=== PATIENT | female | born 1975 | race Caucasian/White ===

== ENCOUNTER 2017-07-29 10:02 | Emergency (ER) | payer OTHER ==
[2017-07-29 10:12] VITALS: BP 131/74
--- NOTE | 2017-07-29 10:45 | UC ---
Abdominal Pain Female HPI - HPI Summary HPI Summary: 41 year old with nausea with vomiting and diarrhea for the past 24 hours. No blood in fluid. No fever. No recent travel or antibiotics. - History of Current Complaint Chief Complaint: UCGI Stated Complaint: VOMITING DIARRHEA Time Seen by Provider: 07/29/17 10:36 Hx Obtained From: Patient Hx Last Menstrual Period: august 2016, had an ablation ?: No Onset/Duration: Sudden Onset Timing: Constant Severity Initially: Moderate Radiates: No Aggravating Factor(s): Food Alleviating Factor(s): Nothing Allergies/Adverse Reactions: Allergies Allergy/AdvReac Type Severity Reaction Status Date / Time No Known Allergies Allergy Verified 07/29/17 10:11 PMH/Surg Hx/FS Hx/Imm Hx Previously Healthy: Yes - Surgical History Surgical History: Yes Surgery Procedure, Year, and Place: x 2. uterine ablation - Family History Known Family History: Positive: Cardiac Disease - mom - Social History Occupation: Employed Full-time Lives: With Family Alcohol Use: None Substance Use Type: None Smoking Status (MU): Light Every Day Tobacco Smoker Type: Cigarettes Amount Used/How Often: 2-3 cigs per day - Immunization History Most Recent Influenza Vaccination: no Review of Systems Constitutional: Fatigue Gastrointestinal: Vomiting, Diarrhea, Nausea All Other Systems Reviewed And Are Negative: Yes Physical Exam Triage Information Reviewed: Yes Appearance: Well-Appearing, No Pain Distress, Well-Nourished Vital Signs: Initial Vital Signs Temp 98.4 F 07/29/17 10:06 Pulse 92 07/29/17 10:06 Resp 16 07/29/17 10:06 BP 131/74 07/29/17 10:06 Pulse Ox 100 07/29/17 10:06 Eye Exam: Normal ENT Exam: Normal Dental Exam: Normal Neck exam: Normal Neck: Positive: 1 Respiratory Exam: Normal Cardiovascular Exam: Normal Abdominal Exam: Normal Musculoskeletal Exam: Normal Neurological Exam: Normal Psychological Exam: Normal Skin Exam: Normal Abd Pain Female Course/Dx - Differential Dx/Diagnosis Provider Diagnoses: Viral Gastroenteritis Discharge - Discharge Plan Condition: Good Disposition: HOME Prescriptions: Ondansetron TAB* [Zofran 4 MG Tab*] 4 mg PO Q6H PRN #10 tab PRN Reason: Nausea Patient Education Materials: Gastroenteritis (ED) Forms: *Work Release Referrals: Zack David [Primary Care Provider] - 4 Days
== END 2017-07-29 10:54 | disposition home or self-care (01) ==
LOC: UCCORT 10:02
DX: A08.4 Viral intestinal infection, unspecified (principal); F17.210 Nicotine dependence, cigarettes, uncomplicated
CPT/HCPCS: 99202; G0463

== ENCOUNTER 2017-08-19 11:04 | Emergency (ER) | payer OTHER, MEDICAID ==
[2017-08-19 11:16] VITALS: BP 142/97
--- NOTE | 2017-08-19 11:42 | UC ---
Back Pain HPI - HPI Summary HPI Summary: 41 year old with back pain. Right greater than left back pain with spasms onset 2 days ago when pt bent over to pick something up. Pain radiates to both legs at times. No trauma, no bowel or bladder concerns, has had this one time prior a few years ago . [ End ] - History of Current Complaint Chief Complaint: UCBackPain Stated Complaint: BACK PAIN Time Seen by Provider: 08/19/17 11:34 Hx Obtained From: Patient Hx Last Menstrual Period: 08/2016 ?: No Onset/Duration: Sudden Onset Timing: Constant Severity Initially: Moderate Character: Spasmodic, Stiffness Aggravating Factor(s): Movement, Lifting, Bending Alleviating Factor(s): Rest - Allergies/Home Medications Allergies/Adverse Reactions: Allergies Allergy/AdvReac Type Severity Reaction Status Date / Time No Known Allergies Allergy Verified 08/19/17 11:16 Home Medications: Home Medications Ibuprofen TAB* [Motrin TAB* 800 MG] 2,400 mg PO ONCE PRN 08/19/17 [History Confirmed 08/19/17] PMH/Surg Hx/FS Hx/Imm Hx Previously Healthy: Yes - Surgical History Surgical History: Yes Surgery Procedure, Year, and Place: x 2. uterine ablation - Family History Known Family History: Positive: Cardiac Disease - mom - Social History Alcohol Use: None Substance Use Type: None Smoking Status (MU): Light Every Day Tobacco Smoker Type: Cigarettes Amount Used/How Often: 2-3 cigs per day Cessation Counseling: Patient Advised to Stop - Immunization History Most Recent Influenza Vaccination: no Review of Systems Musculoskeletal: Arthralgia, Decreased ROM Neurological: Paresthesia Is Patient Immunocompromised?: No All Other Systems Reviewed And Are Negative: Yes Physical Exam Triage Information Reviewed: Yes Appearance: Well-Appearing, No Pain Distress, Well-Nourished Vital Signs: Initial Vital Signs Temp 97.5 F 08/19/17 11:10 Pulse 73 08/19/17 11:10 Resp 22 08/19/17 11:10 BP 142/97 08/19/17 11:10 Vital Signs Reviewed: Yes Eye Exam: Normal Neck exam: Normal Respiratory Exam: Normal Cardiovascular Exam: Normal Musculoskeletal Exam: Normal Musculoskeletal: Positive: Strength Intact, ROM Intact, Other: - b/l lumbar paraspinal tenderness to palpation L3-5. (+) left SLR . DTR's brisk. LE strength 5/5 Neurological Exam: Normal Psychological Exam: Normal Skin Exam: Normal Back Pain Course/Dx - Course Course Of Treatment: start PT, NSAIDs, medrol, f/u with ortho - Differential Dx/Diagnosis Differential Diagnosis/HQI/PQRI: Herniated Disc, Strain, Sprain Provider Diagnoses: sciatica Discharge - Discharge Plan Condition: Good Disposition: HOME Prescriptions: Cyclobenzaprine HCl [Flexeril 5 mg (NF)] 5 mg PO BID #10 tab Methylprednisolone [Medrol Dosepak 4 MG*] 0 mg PO .SEE NAJMA INSTRUCTION #1 tab Patient Education Materials: Sciatica (ED) Referrals: Zack David [Primary Care Provider] - 4 Days Lio Palma MD [Medical Doctor] - 7 Days (Orthopedic referral if needed )
== END 2017-08-19 12:08 | disposition home or self-care (01) ==
LOC: UCCORT 11:04
DX: M54.30 Sciatica, unspecified side (principal); F17.210 Nicotine dependence, cigarettes, uncomplicated
CPT/HCPCS: 99212; G0463

== ENCOUNTER 2017-08-30 10:54 | Emergency (ER) | payer OTHER, MEDICAID ==
[2017-08-30 11:04] VITALS: BP 139/84
--- NOTE | 2017-08-30 11:14 | UC ---
Respiratory Complaint HPI - HPI Summary HPI Summary: 41 YEAR OLD FEMALE PRESENTS WITH COMPLAINS OF COUGH, CHEST CONGESTION AND SINUS PRESSURE. - History of Current Complaint Chief Complaint: UCGeneralIllness Stated Complaint: CONGESTION HEADACHE COUGH Time Seen by Provider: 08/30/17 11:14 Hx Obtained From: Patient Hx Last Menstrual Period: uterine ablation Onset/Duration: Sudden Onset Severity Initially: Moderate Severity Currently: Moderate Pain Scale Used: 0-10 Numeric - 5 - Allergies/Home Medications Allergies/Adverse Reactions: Allergies Allergy/AdvReac Type Severity Reaction Status Date / Time No Known Allergies Allergy Verified 08/30/17 11:00 PMH/Surg Hx/FS Hx/Imm Hx Previously Healthy: Yes - Surgical History Surgical History: Yes Surgery Procedure, Year, and Place: x 2. uterine ablation. D&C - Family History Known Family History: Positive: Cardiac Disease - mom - Social History Alcohol Use: None Substance Use Type: None Smoking Status (MU): Light Every Day Tobacco Smoker Type: Cigarettes Amount Used/How Often: 1-2 cigarettes daily - Immunization History Most Recent Influenza Vaccination: no Review of Systems Constitutional: Negative Skin: Negative Eyes: Negative ENT: Sore Throat, Nasal Discharge, Sinus Congestion, Sinus Pain/Tenderness Respiratory: Cough Cardiovascular: Negative Gastrointestinal: Negative Genitourinary: Negative Motor: Negative Neurovascular: Negative Musculoskeletal: Negative Neurological: Negative Psychological: Negative All Other Systems Reviewed And Are Negative: Yes Physical Exam Triage Information Reviewed: Yes Vital Signs: Initial Vital Signs Temp 36.7 C 08/30/17 11:00 Pulse 85 08/30/17 11:00 Resp 16 08/30/17 11:00 BP 139/84 08/30/17 11:00 Pulse Ox 100 08/30/17 11:00 Vital Signs Reviewed: Yes Eye Exam: Normal ENT: Positive: Pharyngeal erythema, Nasal congestion, Nasal drainage Dental Exam: Normal Neck exam: Normal Neck: Positive: 1 Respiratory Exam: Normal Respiratory: Positive: Wheezing Cardiovascular Exam: Normal Abdominal Exam: Normal Musculoskeletal Exam: Normal Neurological Exam: Normal Psychological Exam: Normal Skin Exam: Normal UC Diagnostic Evaluation - Laboratory O2 Sat by Pulse Oximetry: 100 Respiratory Course/Dx - Differential Dx/Diagnosis Provider Diagnoses: SINUSITIS. COPD. BRONCHITIS Discharge - Discharge Plan Condition: Stable Disposition: HOME Prescriptions: Albuterol HFA INHALER* [Ventolin HFA Inhaler*] 1 puff INH Q6H PRN #1 mdi PRN Reason: Wheezing Azithromyxin NAJMA (NF) [Z-Najma (Zithromax) 250 mg tabs #6] 2 tab PO .TODAY, THEN 1 DAILY #6 tab Methylprednisolone [Medrol Dosepak 4 MG*] 4 mg PO .SEE NAJMA INSTRUCTION #21 tab guaiFENesin/CODIEN 100MG-10MG* [Robitussin AC 100Mg-10Mg*] 5 ml PO Q6H PRN #120 ml MDD 20 ml PRN Reason: Cough Patient Education Materials: COPD (Chronic Obstructive Pulmonary Disease) (ED) , Acute Cough (ED) Referrals: Zack David [Primary Care Provider] -
== END 2017-08-30 11:24 | disposition home or self-care (01) ==
LOC: UCCORT 10:54
DX: J40 Bronchitis, not specified as acute or chronic (principal); J32.9 Chronic sinusitis, unspecified; J44.9 Chronic obstructive pulmonary disease, unspecified; F17.210 Nicotine dependence, cigarettes, uncomplicated
CPT/HCPCS: 99212; G0463

== ENCOUNTER 2018-01-31 17:35 | Emergency (ER) | payer OTHER, MEDICAID ==
[2018-01-31 18:17] VITALS: BP 128/87
--- NOTE | 2018-01-31 18:57 | UC ---
Lower Extremity/Ankle HPI - HPI Summary HPI Summary: pt is c/o pain to the back of her left heel for 4 months. she notes the foot is starting to hurt as well. she denies any injury. she admits that the foot looks a little swollen. no fever or rash. she has tx with IB and shoe inserts with no relief. pt deniea any other joint pain. - History of Current Complaint Chief Complaint: UCGeneralIllness Stated Complaint: LEFT HEEL COMPLAINT Time Seen by Provider: 01/31/18 18:37 Hx Obtained From: Patient Hx Last Menstrual Period: Aug 2016-tubal ligation/uterine ablation ?: No Pain Intensity: 9 Aggravating Factor(s): Standing, Ambulation Alleviating Factor(s): Rest Able to Bear Weight: No - not on the heel itself - Allergies/Home Medications Allergies/Adverse Reactions: Allergies Allergy/AdvReac Type Severity Reaction Status Date / Time No Known Allergies Allergy Verified 01/31/18 18:09 PMH/Surg Hx/FS Hx/Imm Hx Previously Healthy: Yes - Surgical History Surgical History: Yes Surgery Procedure, Year, and Place: x 2. uterine ablation. D&C - Family History Known Family History: Positive: Cardiac Disease - mom - Social History Occupation: Employed Full-time Alcohol Use: Occasionally Substance Use Type: None Smoking Status (MU): Light Every Day Tobacco Smoker Type: Cigarettes Amount Used/How Often: 1-2 cigarettes daily - Immunization History Most Recent Influenza Vaccination: no Review of Systems Constitutional: Negative Skin: Negative Eyes: Negative ENT: Negative Respiratory: Negative Cardiovascular: Negative Gastrointestinal: Negative Genitourinary: Negative Motor: Negative Neurovascular: Negative Musculoskeletal: Other: - pain to back of L heel Neurological: Negative Psychological: Negative Is Patient Immunocompromised?: No All Other Systems Reviewed And Are Negative: Yes Physical Exam Triage Information Reviewed: Yes Appearance: Well-Appearing Vital Signs: Initial Vital Signs Temp 98 F 01/31/18 18:09 Pulse 82 01/31/18 18:09 Resp 16 01/31/18 18:09 BP 128/87 01/31/18 18:09 Pulse Ox 100 01/31/18 18:09 Vital Signs Reviewed: Yes Eye Exam: Normal Diagnostics - Radiology No standard instances Xray Interpretation: No Acute Changes Radiology Interpretation Completed By: Radiologist Lower Extremity Course/Dx - Course Course Of Treatment: no sign of infection to soft tissue, fx or dislocation. no osteomyelitis seen. possble retrocaneal bursitis. will refer to orthopedics - Differential Dx/Diagnosis Provider Diagnoses: Left heel pain. Possible retrocalcaneal bursitis Discharge - Discharge Plan Condition: Stable Disposition: HOME Prescriptions: Naproxen [Naprosyn] 500 mg PO BID #14 tablet Patient Education Materials: Heel Spur (ED) Referrals: Zack David [Primary Care Provider] - If Needed Sybil Strauss DPM [Doctor of Podiatric Medicine] - As Soon As Possible Additional Instructions: STOP THE MOTRIN
--- NOTE | 2018-01-31 19:36 | RAD ---
INDICATION: Left foot pain COMPARISON: None TECHNIQUE: AP, lateral, and oblique views were obtained. FINDINGS: There is no acute fracture or dislocation. There are heel spurs. There are hammertoe deformities. The soft tissues are normal. IMPRESSION: NO ACUTE BONY FINDINGS. HEEL SPURS.
== END 2018-01-31 19:46 | disposition home or self-care (01) ==
LOC: UCCORT 17:35
DX: M79.672 Pain in left foot (principal); F17.210 Nicotine dependence, cigarettes, uncomplicated
CPT/HCPCS: 99212; G0463

== ENCOUNTER 2018-09-24 11:05 | Emergency (ER) | payer OTHER ==
[2018-09-24 11:18] VITALS: BP 132/72
--- NOTE | 2018-09-24 11:29 | UC ---
General HPI - HPI Summary HPI Summary: 42 yo without PMH c/o vomiting and diarrhea since 0300 this morning. States she was able to drink fluids and has not vomited for the past 2 hrs. Denies diarrhea since yesterday. Denies chills, fever, flank pain, urinary symptoms Needs a work note for today - History of Current Complaint Chief Complaint: UCGI Stated Complaint: NAUSEA/DIARRHEA Time Seen by Provider: 09/24/18 11:21 Hx Obtained From: Patient Hx Last Menstrual Period: none since 09/2016 Onset/Duration: Sudden Onset, Lasting Hours Onset Severity: Mild Current Severity: None Pain Intensity: 0 Associated Signs & Symptoms: Positive: Abdominal Pain, Diarrhea, Vomiting - Allergy/Home Medications Allergies/Adverse Reactions: Allergies Allergy/AdvReac Type Severity Reaction Status Date / Time No Known Allergies Allergy Verified 09/24/18 11:16 Home Medications: Home Medications NK [No Home Medications Reported] 09/24/18 [History Confirmed 09/24/18] PMH/Surg Hx/FS Hx/Imm Hx Previously Healthy: Yes - Surgical History Surgical History: Yes Surgery Procedure, Year, and Place: x 2. uterine ablation. D&C - Family History Known Family History: Positive: Cardiac Disease - mom, Hypertension - Social History Alcohol Use: Rare Substance Use Type: None Smoking Status (MU): Light Every Day Tobacco Smoker Type: Cigarettes Amount Used/How Often: 1-2 cigarettes daily - Immunization History Most Recent Influenza Vaccination: no Review of Systems All Other Systems Reviewed And Are Negative: Yes Gastrointestinal: Positive: Vomiting, Diarrhea, Nausea Physical Exam Appearance: Well-Appearing, No Pain Distress, Obese Vital Signs: Initial Vital Signs Temp 97.6 F 09/24/18 11:14 Pulse 77 09/24/18 11:14 Resp 16 09/24/18 11:14 BP 132/72 09/24/18 11:14 Pulse Ox 99 09/24/18 11:14 Vital Signs Reviewed: Yes Eyes: Positive: Conjunctiva Clear ENT: Positive: Hearing grossly normal, Pharynx normal, TMs normal Neck: Positive: Supple, Nontender, No Lymphadenopathy Respiratory: Positive: Chest non-tender, Lungs clear, Normal breath sounds, No respiratory distress Cardiovascular: Positive: RRR, No Murmur, Pulses Normal, Brisk Capillary Refill Abdomen Description: Positive: Nontender, No Organomegaly, Soft Bowel Sounds: Positive: Present Musculoskeletal: Positive: Strength Intact, ROM Intact, No Edema Neurological: Positive: Alert, Muscle Tone Normal Skin Exam: Normal Course/Dx - Course Course Of Treatment: patient with self limited diarrhea and vomiting which lasted several hours, compatible with food poisoning/gastroenteritis continue oral hydration and f/u with PCP - Differential Dx - Multi-Symptom Provider Diagnoses: Gastroenteritis Discharge - Sign-Out/Discharge Documenting (check all that apply): Patient Departure All imaging exams completed and their final reports reviewed: No Studies - Discharge Plan Condition: Stable Disposition: HOME Patient Education Materials: Gastroenteritis (ED), Dehydration (ED) Referrals: Zack David [Primary Care Provider] - - Billing Disposition and Condition Condition: STABLE Disposition: Home
== END 2018-09-24 11:49 | disposition home or self-care (01) ==
LOC: UCCORT 11:05
DX: K52.9 Noninfective gastroenteritis and colitis, unspecified (principal); F17.210 Nicotine dependence, cigarettes, uncomplicated
CPT/HCPCS: 99211; G0463

== ENCOUNTER 2018-12-22 09:04 | Emergency (ER) | payer OTHER ==
[2018-12-22 10:43] VITALS: BP 131/88
[2018-12-22 11:07] LABS: Influenza A Molecular POSITIVE (Negative)
--- NOTE | 2018-12-22 11:18 | UC ---
General HPI - HPI Summary HPI Summary: Here with Son (same symptoms) 4 days ago started with a sore throat, cough and congestion. Fever started 2 days ago - Tmax: 101. N/V/D No abdominal pain. + Body aches. Good PO. No rash. +sick contacts. Is a smoker but stopped since she has been sick. Works in school system - History of Current Complaint Chief Complaint: UCGeneralIllness Stated Complaint: VOMITING,COUGH Time Seen by Provider: 12/22/18 10:43 Hx Last Menstrual Period: none since 09/2016 Pain Intensity: 0 - Allergy/Home Medications Allergies/Adverse Reactions: Allergies Allergy/AdvReac Type Severity Reaction Status Date / Time No Known Allergies Allergy Verified 12/22/18 10:38 Home Medications: Home Medications Phenylephrine/Dm/Acetaminop/GG [Tylenol Cold-Flu Severe Caplet] 1 each PO ONCE 12/22/18 [History Confirmed 12/22/18] PMH/Surg Hx/FS Hx/Imm Hx Previously Healthy: Yes - Surgical History Surgical History: Yes Surgery Procedure, Year, and Place: x 2. uterine ablation. D&C - Family History Known Family History: Positive: Cardiac Disease - mom, Hypertension - Social History Alcohol Use: Rare Substance Use Type: None Smoking Status (MU): Light Every Day Tobacco Smoker Type: Cigarettes Amount Used/How Often: 1-2 cigarettes daily - Immunization History Most Recent Influenza Vaccination: no Review of Systems All Other Systems Reviewed And Are Negative: Yes Constitutional: Positive: Fever, Chills ENT: Positive: Sore Throat, Sinus Congestion Respiratory: Positive: Cough Gastrointestinal: Positive: Vomiting, Diarrhea, Nausea Physical Exam Vital Signs: Initial Vital Signs Temp 99.1 F 12/22/18 10:38 Pulse 78 12/22/18 10:38 Resp 17 12/22/18 10:38 BP 131/88 12/22/18 10:38 Pulse Ox 98 12/22/18 10:38 Course/Dx - Course Course Of Treatment: This is a 43 yr old with cough/congestion and fever. Assessment. Nontoxic appearing. INfluenza A positive. RAD. Plan. Start Tamiflu as prescribed. Start Albuterol inhaler with spacer every 4-6 hours while sick then as needed. COntinue to drink fluids. Ibuprofen as needed for pain/fever as directed. If symptoms persist or worsen, call primary or return to urgent care. Stop smoking - Diagnoses Provider Diagnosis: Influenza A, Reactive airway disease Discharge - Sign-Out/Discharge Documenting (check all that apply): Patient Departure All imaging exams completed and their final reports reviewed: No Studies - Discharge Plan Condition: Good Disposition: HOME Prescriptions: Albuterol HFA INHALER* [Ventolin HFA Inhaler*] 2 puff INH Q4H PRN #1 mdi PRN Reason: Cough Oseltamivir Phosphate [Tamiflu] 75 mg PO BID #10 capsule Patient Education Materials: Influenza (ED) Forms: *Work Release Referrals: Zack David [Primary Care Provider] - Additional Instructions: Start Tamiflu as prescribed Start Albuterol inhaler with spacer every 4-6 hours while sick then as needed COntinue to drink fluids Ibuprofen as needed for pain/fever as directed If symptoms persist or worsen, call primary or return to urgent care - Billing Disposition and Condition Condition: GOOD Disposition: Home
== END 2018-12-22 11:32 | disposition home or self-care (01) ==
LOC: UCCORT 09:04
DX: J45.909 Unspecified asthma, uncomplicated (principal); J10.1 Influenza due to other identified influenza virus with other respiratory manifestations; F17.210 Nicotine dependence, cigarettes, uncomplicated; R19.7 Diarrhea, unspecified
CPT/HCPCS: 99212; G0463

== ENCOUNTER 2019-02-14 13:51 | Emergency (ER) | payer OTHER ==
[2019-02-14 14:04] VITALS: BP 132/71
--- NOTE | 2019-02-14 14:19 | UC ---
Abdominal Pain Female HPI - HPI Summary HPI Summary: sever RLQ abdominal pain x 1 day started from mid abd yesterday , moving to the right lower this morning pain is sever, 10 out of 10, no radiation , worse with movements, better by not moving at all no n/v/d/c , no urinary sx - History of Current Complaint Chief Complaint: UCAbdominalPain Stated Complaint: SEVERE ABD PAIN Time Seen by Provider: 02/14/19 14:08 Hx Obtained From: Patient Hx Last Menstrual Period: none since 09/2016 ?: No Onset/Duration: Gradual Onset, Lasting Days - 1, Still Present Timing: Constant Severity Initially: Moderate Severity Currently: Severe Pain Intensity: 9 Location: Discrete At: RLQ Radiates: No Character: Aching Aggravating Factor(s): Movement Alleviating Factor(s): Position Associated Signs and Symptoms: Negative: Fever, Back Pain, Constipation, Blood in Stool, Urinary Symptoms, Decreased Appetite, Vaginal Bleeding, Vaginal Discharge, Nausea, Vomiting, Diarrhea Allergies/Adverse Reactions: Allergies Allergy/AdvReac Type Severity Reaction Status Date / Time No Known Allergies Allergy Verified 02/14/19 14:03 Home Medications: Home Medications Ibuprofen 400 mg PO ONCE PRN 02/14/19 [History Confirmed 02/14/19] PMH/Surg Hx/FS Hx/Imm Hx - Additional Past Medical History Additional PMH: abdominal abscess 06/2016 s/p - Surgical History Surgical History: Yes Surgery Procedure, Year, and Place: x 2. uterine ablation. D&C - Family History Known Family History: Positive: Cardiac Disease - mom, Hypertension - Social History Alcohol Use: Occasionally Substance Use Type: None Smoking Status (MU): Light Every Day Tobacco Smoker Type: Cigarettes Amount Used/How Often: 1-2 cigarettes daily - Immunization History Most Recent Influenza Vaccination: no Review of Systems All Other Systems Reviewed And Are Negative: Yes Constitutional: Positive: Negative Skin: Positive: Negative Eyes: Positive: Negative ENT: Positive: Negative Gastrointestinal: Positive: Abdominal Pain Is Patient Immunocompromised?: No Physical Exam Triage Information Reviewed: Yes Appearance: Pain Distress, Obese Vital Signs: Initial Vital Signs Temp 97.8 F 02/14/19 13:59 Pulse 94 02/14/19 13:59 Resp 18 02/14/19 13:59 BP 132/71 02/14/19 13:59 Pulse Ox 100 02/14/19 13:59 Vital Signs Reviewed: Yes Eye Exam: Normal Eyes: Positive: Conjunctiva Clear ENT: Positive: Normal ENT inspection, Hearing grossly normal, Pharynx normal Neck: Positive: Supple, Nontender, No Lymphadenopathy Respiratory: Positive: Chest non-tender, Lungs clear, Normal breath sounds Cardiovascular: Positive: RRR, No Murmur Abdomen Description: Positive: Soft, Guarding, Other: - + rebound, tenderness RLQ. Negative: CVA Tenderness (L), Distended Musculoskeletal Exam: Normal Abd Pain Female Course/Dx - Differential Dx/Diagnosis Provider Diagnosis: Acute abdominal pain Discharge - Sign-Out/Discharge Documenting (check all that apply): Patient Departure All imaging exams completed and their final reports reviewed: No Studies - Discharge Plan Condition: Good Disposition: TRANS HIGHER LVL OF CARE FAC Patient Education Materials: Acute Abdominal Pain (ED) Referrals: Zack David [Primary Care Provider] - Additional Instructions: severe abdominal pain + rebound / guarding , RLQ tenderness most likely acute appendicitis please go to [facility] ED for evaluation and tx - Billing Disposition and Condition Condition: GOOD Disposition: Trans Higher Lvl of Care Fac
== END 2019-02-14 14:18 | disposition short-term general hospital (02) ==
LOC: UCCORT 13:51
DX: R10.31 Right lower quadrant pain (principal); F17.210 Nicotine dependence, cigarettes, uncomplicated
CPT/HCPCS: 99212; G0463

== ENCOUNTER 2019-09-01 09:27 | Emergency (ER) | payer OTHER ==
[2019-09-01 09:59] VITALS: BP 135/93
--- NOTE | 2019-09-01 10:41 | UC ---
Abdominal Pain Female HPI - HPI Summary HPI Summary: FOR ABOUT ONE WEEK, PAIN AROUND UMBILLICUS AND A SWELLING THAT SHE HAS NOTICED. WHEN SHE LAYS FLAT THE LUMP DISSAPPEARS. COUGHING MAKES IT POP OUT. HAS FELT NAUSEATED RECENTLY, AND BMS HAVE BEEN LESS - History of Current Complaint Chief Complaint: UCAbdominalPain Stated Complaint: ABD PAIN,BUMP ON BELLY BUTTON Time Seen by Provider: 09/01/19 10:30 Hx Obtained From: Patient Hx Last Menstrual Period: 2015, UTERINE ABLATION ?: No Onset/Duration: Gradual Onset, Lasting Weeks Timing: Constant Severity Initially: Mild Severity Currently: Moderate Pain Intensity: 5 Location: Other - umbilical Radiates: No Radiates to: Other - umbilical Character: Aching, Sharp Aggravating Factor(s): Movement Alleviating Factor(s): Position, Bowel Movement Allergies/Adverse Reactions: Allergies Allergy/AdvReac Type Severity Reaction Status Date / Time No Known Allergies Allergy Verified 09/01/19 09:50 Home Medications: Home Medications Anti- Anxiety Med, ? Name 1 tab PO BEDTIME PRN 09/01/19 [History] FLUoxetine CAP* [PROzac CAP*] 10 mg PO DAILY 09/01/19 [History Confirmed ] PMH/Surg Hx/FS Hx/Imm Hx Previously Healthy: Yes - Surgical History Surgical History: Yes Surgery Procedure, Year, and Place: x 2. uterine ablation. D&C. APPENDECTOMY 02/2019 - Family History Known Family History: Positive: Cardiac Disease - mom, Hypertension - Social History Alcohol Use: Occasionally Substance Use Type: None Smoking Status (MU): Light Every Day Tobacco Smoker Type: Cigarettes Amount Used/How Often: 1/2 PPD Have You Smoked in the Last Year: Yes Household Exposure Type: Cigarettes - Immunization History Most Recent Influenza Vaccination: no Review of Systems All Other Systems Reviewed And Are Negative: Yes Gastrointestinal: Positive: Abdominal Pain, Nausea Is Patient Immunocompromised?: No Physical Exam Triage Information Reviewed: Yes Appearance: Well-Appearing, Pain Distress, Obese Vital Signs: Initial Vital Signs Temp 97.7 F 09/01/19 09:53 Pulse 78 09/01/19 09:53 Resp 18 09/01/19 09:53 BP 135/93 09/01/19 09:53 Pulse Ox 99 09/01/19 09:53 Vital Signs Reviewed: Yes Eye Exam: Normal ENT Exam: Normal Dental Exam: Normal Neck exam: Normal Respiratory Exam: Normal Cardiovascular Exam: Normal Abdomen Description: Positive: No Organomegaly, Soft, CVA Tenderness (R) - neg, CVA Tenderness (L) - neg, Hernia @ - right umbilical, seen when sitting and standing, Other: - tender diffuse on palpatiuon Bowel Sounds: Positive: Present Musculoskeletal Exam: Normal Neurological Exam: Normal Psychological Exam: Normal Skin Exam: Normal Abd Pain Female Course/Dx - Course Course Of Treatment: hx obtained, exam performed ,meds reviewed, ct obtained, and - Differential Dx/Diagnosis Provider Diagnosis: Hernia of abdominal cavity Discharge ED - Sign-Out/Discharge Documenting (check all that apply): Patient Departure All imaging exams completed and their final reports reviewed: Yes - Discharge Plan Condition: Stable Disposition: HOME Patient Education Materials: Umbilical Hernia (ED) Forms: *Work Release Referrals: Chato Stapleton MD [Medical Doctor] - Sky Simpson PA [Primary Care Provider] - Additional Instructions: 1. follow up with the surgeon for a consult about possible repair 2. Limit heavy lifting to pain free 3. Ibuprofen as needed. - Billing Disposition and Condition Condition: STABLE Disposition: Home
== END 2019-09-01 11:29 | disposition home or self-care (01) ==
LOC: UCCORT 09:27
DX: K46.9 Unspecified abdominal hernia without obstruction or gangrene (principal); E66.9 Obesity, unspecified; R11.0 Nausea; F17.210 Nicotine dependence, cigarettes, uncomplicated
CPT/HCPCS: 74176; 99211; G0463